=== PATIENT | female | born 1960 | race Caucasian/White ===

== ENCOUNTER 2017-08-25 10:03 | Emergency (ER) | payer SELFPAY ==
[~2017-08-25] VITALS: Ht 175.3 cm; Wt 62.6 kg
[~2017-08-25 10:03] MED LIST: LOSA25TA8; SIMV5TAB38; TRIA25CA
[2017-08-25 13:49] VITALS: BP 112/83
== END 2017-08-25 14:51 | disposition home or self-care (01) ==
LOC: ER 10:03
DX: R21 Rash and other nonspecific skin eruption (principal); K21.9 Gastro-esophageal reflux disease without esophagitis; I10 Essential (primary) hypertension; E78.5 Hyperlipidemia, unspecified; F17.210 Nicotine dependence, cigarettes, uncomplicated

== ENCOUNTER 2019-11-01 15:27 | Inpatient (IN) | payer MEDICAID ==
[~2019-11-01] VITALS: Ht 165.1 cm; Wt 67.7 kg
[2019-11-01 16:20] LABS: Basophils # (auto) 0.1 10 ^3/uL (0-0.2); Basophils % (auto) 0.9 % (0.0-2.0); Eosinophils # (auto) 0.1 10 ^3/uL (0-0.8); Eosinophils % (auto) 0.5 % (0.0-7.0); Hematocrit 16.6 % (36.0-46.0); Lymphocytes # (auto) 1.9 10 ^3/uL (0.4-5.4); Lymphocytes % (auto) 15.9 % (10.0-50.0); Mean Corpuscular Hemoglobin 16.4 pg (28.0-32.0); Mean Corpuscular Hgb Conc. 27.4 g/dL (32.0-36.0); Mean Corpuscular Volume 59.9 fL (80.0-100.0); Monocytes % (auto) 8.6 % (0.0-12.0); Neutrophils % (auto) 74.1 % (37.0-80.0); Nucleated Red Blood Cells % 7.5 %; Platelet Count (auto) 585 10^3/uL (140-450); Red Blood Cells 2.78 10^6/uL (4.0-5.20); Red Cell Distribution Width 23.6 % (11.8-14.3); White Blood Cell 12.2 10^3/uL (4.4-10.8)
[2019-11-01 16:22] LABS: Hemoglobin 4.6 g/dL (12.2-16.2)
[2019-11-01] MEDS ORDERED: SODIUM CHLORIDE 0.9% 1,000 ML IV ONE (16:32)
[2019-11-01 16:44] LABS: Alanine Aminotransferase 18 U/L (13-56); Albumin 3.4 g/dL (3.4-5.0); Anion Gap 10 (5-15); Aspartate Aminotransferase 9 U/L (15-37); BUN/Creatinine Ratio 14.5; Blood Urea Nitrogen 10 mg/dL (7-18); Calcium 8.5 mg/dL (8.5-10.1); Carbon Dioxide 21 mmol/L (21-32); Chloride 107 mmol/L (98-107); GFR African American 112 mL/min; GFR Non-African American 93 mL/min; Glucose 91 mg/dL (74-106); Potassium 3.6 mmol/L (3.5-5.1); Sodium 138 mmol/L (136-145)
[2019-11-01 16:49] LABS: Alkaline Phosphatase 72 U/L (45-117); Bilirubin, Total 0.4 mg/dL (0.2-1.0); Total Protein 7.4 g/dL (6.4-8.2)
[2019-11-01 17:56] LABS: INR 0.97 (0.9-1.15)
[2019-11-01 18:02] LABS: Partial Thromboplastin Time > 139.0 sec (23.64-32.05)
[2019-11-01] MEDS ORDERED: IOHEXOL 300 MG/ML 100ML BOTTLE IJ ONE (18:05)
[2019-11-01 18:51] VITALS: BP 132/81
[2019-11-01 19:06] VITALS: BP 131/82
[2019-11-01 20:10] VITALS: BP 139/83
[2019-11-01] MEDS ORDERED: cefTRIAXone 1GM/50ML D5W 50 ML IV ONE (20:30)
[2019-11-01] MEDS ORDERED: metroNIDAZOLE 500MG/100ML 100 ML IV ONE (20:30)
[2019-11-01 20:59] VITALS: BP 138/79
[2019-11-01] MEDS ORDERED: ONDANSETRON HCL 4 MG/2 ML VIAL IV PRN (21:00)
[2019-11-01] MEDS ORDERED: TEMAZEPAM 15 MG CAP PO PRN (21:00)
[2019-11-01 21:16] LABS: Urine WBC None Seen /hpf (0 - 5)
[2019-11-01 21:19] VITALS: BP 138/79
[2019-11-01 21:28] LABS: Urine Bacteria NONE SEEN /hpf (None Seen); Urine Blood Negative /uL (Negative); Urine Specific Gravity 1.045 (1.001-1.035)
[2019-11-01 21:34] VITALS: BP 137/81
[2019-11-01] MEDS ORDERED: NITROGLYCERIN 0.4 MG SL TAB SL PRN (21:45)
[2019-11-01] MEDS ORDERED: MORPHINE SULF INJ 2 MG/ML SYRINGE 1ML IV PRN (21:45)
[2019-11-01] MEDS: ATORVASTATIN 20 MG TAB PO SCH (22:19)
[2019-11-01] MEDS: FAMOTIDINE 20 MG TAB PO SCH (22:19)
[2019-11-02] VITALS (9 sets, daily range): BP systolic 109–137; BP diastolic 69–85
[2019-11-02 03:29] LABS: % Iron Saturation 1.8 % (15-50)
[2019-11-02 05:30] LABS: Basophils # (auto) 0.1 10 ^3/uL (0-0.2); Basophils % (auto) 1.2 % (0.0-2.0); Eosinophils # (auto) 0.2 10 ^3/uL (0-0.8); Hemoglobin 7.1 g/dL (12.2-16.2); White Blood Cell 11.3 10^3/uL (4.4-10.8)
[2019-11-02 05:34] LABS: Eosinophils % (auto) 1.6 % (0.0-7.0); Hematocrit 23.4 % (36.0-46.0); Lymphocytes # (auto) 1.8 10 ^3/uL (0.4-5.4); Lymphocytes % (auto) 16.4 % (10.0-50.0); Mean Corpuscular Hemoglobin 20.8 pg (28.0-32.0); Mean Corpuscular Hgb Conc. 30.5 g/dL (32.0-36.0); Mean Corpuscular Volume 68.2 fL (80.0-100.0); Monocytes # (auto) 1.4 10 ^3/uL (0-1.3); Monocytes % (auto) 12.2 % (0.0-12.0); Neutrophils # (auto) 7.8 10 ^3/uL (1.6-8.6); Neutrophils % (auto) 68.6 % (37.0-80.0); Platelet Count (auto) 466 10^3/uL (140-450); Red Blood Cells 3.42 10^6/uL (4.0-5.20)
[2019-11-02 05:42] LABS: Red Cell Distribution Width 30.6 % (11.8-14.3)
[2019-11-02 05:50] LABS: BUN/Creatinine Ratio 14.8; Calcium 8.4 mg/dL (8.5-10.1); Potassium 3.9 mmol/L (3.5-5.1)
[2019-11-02] MEDS: ACETAMINOPHEN 325 MG TAB PO PRN ×2 (06:47→14:25)
[2019-11-02] MEDS: FAMOTIDINE 20 MG TAB PO SCH ×2 (09:40→21:53)
[2019-11-02] MEDS: LOSARTAN POTASSIUM 25 MG TAB PO SCH (09:40)
[2019-11-02] MEDS ORDERED: SODIUM FERR GLUC 62.5MG/5ML 125 MG in SODIUM CHL 0.9% 100 ML IV ONE (15:30)
[2019-11-02] MEDS ORDERED: BISACODYL 5 MG EC TAB PO ONE (15:45)
[2019-11-02 18:25] LABS: INR 0.97 (0.9-1.15); Partial Thromboplastin Time 20.8 sec (23.64-32.05)
[2019-11-02] MEDS: ATORVASTATIN 20 MG TAB PO SCH (21:54)
[2019-11-02 22:15] LABS: Urine Bacteria NONE SEEN /hpf (None Seen); Urine Blood Negative /uL (Negative); Urine Specific Gravity 1.016 (1.001-1.035); Urine WBC 1 /hpf (0 - 5)
[2019-11-03 05:22] VITALS: BP 133/79
[2019-11-03 05:57] LABS: Hemoglobin 7.4 g/dL (12.2-16.2); Mean Corpuscular Hemoglobin 20.5 pg (28.0-32.0); Mean Corpuscular Hgb Conc. 29.7 g/dL (32.0-36.0)
[2019-11-03 05:59] LABS: Platelet Count (auto) 462 10^3/uL (140-450); Red Blood Cells 3.63 10^6/uL (4.0-5.20); Red Cell Distribution Width 30.3 % (11.8-14.3); White Blood Cell 13.5 10^3/uL (4.4-10.8)
[2019-11-03 06:00] LABS: Band Neutrophils % (manual) 0; Basophils % (manual) 0 (0.0-2.0); Blast Cells 0; Metamyelocytes % 0; Myelocytes % 0; Promyelocytes % 0; Reactive Lymphocytes 0
[2019-11-03 06:26] LABS: Cholesterol 136 mg/dL (< 200); HDL Cholesterol 60 mg/dL (40-59); LDL Cholesterol 70 mg/dL (< 100); Triglycerides 59 mg/dL (< 150)
[2019-11-03 06:29] LABS: % Iron Saturation 9.1 % (15-50)
[2019-11-03 07:13] LABS: Eosinophils % (manual) 3 (0-7); Lymphocytes % (manual) 8 (10.0-50.0); Monocytes % (manual) 5 (0-12)
[2019-11-03 07:27] LABS: INR 1.01 (0.9-1.15); Partial Thromboplastin Time 21.6 sec (23.64-32.05)
[2019-11-03 07:51] LABS: Folate (Folic Acid) 6.07 ng/mL (5.38-24)
[2019-11-03 08:00] VITALS: BP 129/83
[2019-11-03 09:00] VITALS: BP 129/83
[2019-11-03] MEDS: LOSARTAN POTASSIUM 25 MG TAB PO SCH (09:47)
[2019-11-03] MEDS: FAMOTIDINE 20 MG TAB PO SCH (09:47)
[2019-11-03] MEDS ORDERED: SODIUM FERR GLUC 62.5MG/5ML 125 MG in SODIUM CHL 0.9% 100 ML IV SCH (12:00)
[2019-11-03 13:00] VITALS: BP 118/77
[2019-11-03] MEDS: ACETAMINOPHEN 325 MG TAB PO PRN (15:01)
[2019-11-03] MEDS ORDERED: FER325T PO (15:23)
[2019-11-03] MEDS ORDERED: PANT40TA2 PO (15:24)
[2019-11-03 17:00] VITALS: BP 133/93
[2019-11-03 18:45] VITALS: BP 133/93
[2019-11-06 07:02] LABS: Hepatitis B Surface Antibody Negative
[2019-11-06 10:41] LABS: Hepatitis B Surface Antigen Negative (Negative)
[2019-11-06 10:47] LABS: Hepatitis C Antibody Negative (Negative)
== END 2019-11-03 21:00 | disposition home or self-care (01) | DRG 663 ==
LOC: ER 15:27 → TELE 15:28 → TELE-WESTW 22:45
PROVIDERS: ADMIT Nurse Practitioner; ATTEND Internal Medicine
PROC: 30233N1 Transfusion of Nonautologous Red Blood Cells into Peripheral Vein, Percutaneous Approach (ICD-10-PCS; principal; 2019-11-01)
DX: D50.9 Iron deficiency anemia, unspecified (principal); D65 Disseminated intravascular coagulation [defibrination syndrome]; D47.3 Essential (hemorrhagic) thrombocythemia; K44.9 Diaphragmatic hernia without obstruction or gangrene; I10 Essential (primary) hypertension; E78.5 Hyperlipidemia, unspecified; Z86.2 Personal history of diseases of the blood and blood-forming organs and certain disorders involving the immune mechanism; Z90.81 Acquired absence of spleen; Z87.891 Personal history of nicotine dependence
CPT/HCPCS: 36415; 71045; 74177; 80048; 80053; 80061; 81001; 82270; 82607; 82746; 83540; 83550; 83735; 84443; 84484; 85007; 85025; 85027; 85610; 85730; 86706; 86803; 86850; 86900; 86901; 86920; 87086; 87340; 93005; 96361; 96365; 96368; G0378; J0696; J3490

== ENCOUNTER 2019-11-04 18:41 | Inpatient (IN) | payer MEDICAID ==
[~2019-11-04] VITALS: Ht 165.1 cm; Wt 69.1 kg
[2019-11-04 10:30] VITALS: BP 157/88
[~2019-11-04 18:41] MED LIST changes: +FER325T PO; +PANT40TA2 PO
[2019-11-04] MEDS ORDERED: SODIUM CHLORIDE 0.9% 1,000 ML IV ONE (18:48)
[2019-11-04] MEDS ORDERED: cefTRIAXone 1GM/50ML D5W 50 ML IV ONE (19:00)
[2019-11-04 20:17] LABS: Hemoglobin 7.8 g/dL (12.2-16.2); Mean Corpuscular Volume 71.7 fL (80.0-100.0)
[2019-11-04 20:18] LABS: Hematocrit 25.7 % (36.0-46.0); Mean Corpuscular Hemoglobin 21.8 pg (28.0-32.0); Mean Corpuscular Hgb Conc. 30.4 g/dL (32.0-36.0); Platelet Count (auto) 478 10^3/uL (140-450); Red Blood Cells 3.58 10^6/uL (4.0-5.20); White Blood Cell 14.1 10^3/uL (4.4-10.8)
[2019-11-04 20:19] LABS: Red Cell Distribution Width 32.2 % (11.8-14.3)
[2019-11-04 20:21] LABS: Basophils % (manual) 0 (0.0-2.0); Blast Cells 0; Eosinophils % (manual) 0 (0-7); Metamyelocytes % 0; Myelocytes % 0; Promyelocytes % 0; Reactive Lymphocytes 0
[2019-11-04 20:28] LABS: Albumin 3.5 g/dL (3.4-5.0); Calcium 9.2 mg/dL (8.5-10.1); Potassium 3.6 mmol/L (3.5-5.1)
[2019-11-04 20:32] LABS: BUN/Creatinine Ratio 11.4; Bilirubin, Total 0.4 mg/dL (0.2-1.0); Total Protein 7.3 g/dL (6.4-8.2)
[2019-11-04 21:08] LABS: Band Neutrophils % (manual) 0; Lymphocytes % (manual) 13 (10.0-50.0); Monocytes % (manual) 10 (0-12)
[2019-11-04] MEDS ORDERED: ONDANSETRON HCL 4 MG/2 ML VIAL IV PRN (21:30)
[2019-11-04] MEDS ORDERED: DOCUSATE SOD 100 MG CAP PO PRN (21:30)
[2019-11-04] MEDS ORDERED: ACETAMINOPHEN 325 MG TAB PO PRN (21:30)
[2019-11-04] MEDS: SODIUM CHLORIDE 0.9% 1,000 ML IV SCH (21:36)
[2019-11-04] MEDS: CLINDAMYCIN 600MG IV 50 ML IV SCH (21:50)
[2019-11-04] MEDS: FERROUS SULFATE 325 MG TAB PO SCH (21:51)
[2019-11-04] MEDS: RIVAROXABAN 15 MG TAB PO SCH (21:51)
--- NOTE | 2019-11-04 22:46 | NUR ---
MS admit from ER BRIANNA FOSTER Y admitted to tele/MS . Patient oriented to LIN WERNER, primary RN, unit, room, bed, and unit policies regarding patient care and visiting hours. Patient weighed by bedscale and encouraged to call if they need something. All questions and concerns addressed, patient verbalized understanding. Call fair with in reach. Bed in low position. Right arm slightly reddened and swollen. MRSA swab done, recent hospital discharge.
[2019-11-04] MEDS: HYDROcodone-ACET 5/325MG TAB PO PRN (23:00)
[2019-11-05] MEDS: CLINDAMYCIN 600MG IV 50 ML IV SCH ×3 (05:08→21:07)
[2019-11-05] MEDS: SODIUM CHLORIDE 0.9% 1,000 ML IV SCH ×2 (05:11→17:42)
[2019-11-05 05:30] VITALS: BP 136/88
[2019-11-05] MEDS: HYDROcodone-ACET 5/325MG TAB PO PRN ×4 (05:35→21:08)
[2019-11-05 09:00] VITALS: BP 115/80
--- NOTE | 2019-11-05 09:15 | NUR ---
PAIN PATIENT C/O LEFT ARM PAIN, WHICH IS NON RADIATING. RATING IT A 6 ON A 0-10 SCALE. ARM WARM TO TOUCH AND TENDER TO TOUCH. PATIENT REQUEST PAIN MEDICATION. WILL ADMINISTER PRN PER ORDER. WILL REASSESS.
[2019-11-05] MEDS: PANTOPRAZOLE 40 MG TAB PO SCH (09:19)
[2019-11-05] MEDS: FERROUS SULFATE 325 MG TAB PO SCH ×2 (09:20→21:07)
[2019-11-05] MEDS: HCTZ 25 MG TAB PO SCH (09:20)
[2019-11-05] MEDS: ATORVASTATIN 20 MG TAB PO SCH (09:21)
[2019-11-05] MEDS: LOSARTAN POTASSIUM 25 MG TAB PO SCH (09:22)
[2019-11-05] MEDS: RIVAROXABAN 15 MG TAB PO SCH (09:22)
[2019-11-05 09:30] LABS: Basophils # (auto) 0.1 10 ^3/uL (0-0.2); Eosinophils # (auto) 0.3 10 ^3/uL (0-0.8); Neutrophils # (auto) 7.2 10 ^3/uL (1.6-8.6); Platelet Count (auto) 505 10^3/uL (140-450); White Blood Cell 12.5 10^3/uL (4.4-10.8)
[2019-11-05 09:32] LABS: Basophils % (auto) 0.9 % (0.0-2.0); Eosinophils % (auto) 2.4 % (0.0-7.0); Hematocrit 26.3 % (36.0-46.0); Hemoglobin 7.8 g/dL (12.2-16.2); Lymphocytes # (auto) 3.9 10 ^3/uL (0.4-5.4); Lymphocytes % (auto) 31.5 % (10.0-50.0); Mean Corpuscular Hemoglobin 21.2 pg (28.0-32.0); Mean Corpuscular Hgb Conc. 29.7 g/dL (32.0-36.0); Mean Corpuscular Volume 71.6 fL (80.0-100.0); Monocytes % (auto) 7.8 % (0.0-12.0); Neutrophils % (auto) 57.4 % (37.0-80.0); Nucleated Red Blood Cells % 1.1 %; Red Blood Cells 3.67 10^6/uL (4.0-5.20)
[2019-11-05 09:52] LABS: BUN/Creatinine Ratio 12.7; Calcium 8.6 mg/dL (8.5-10.1); Potassium 4.1 mmol/L (3.5-5.1)
--- NOTE | 2019-11-05 10:20 | NUR ---
PAIN REASSESSMENT. PATIENT RESTING IN BED COMFORTABLY. NO S/S OF PAIN OR DISTRESS NOTED AT THIS TIME. PATIENT STATES PAIN IS TOLERABLE AT THIS TIME AND RATES IT A 3/10. WILL CONTINUE MONITORING.
--- NOTE | 2019-11-05 12:00 | NUR ---
URINALYSIS COLLECTED AND SENT TO LAB
[2019-11-05 12:37] VITALS: BP 121/78
[2019-11-05 13:15] LABS: Urine Bacteria NONE SEEN /hpf (None Seen); Urine Blood Negative /uL (Negative); Urine Mucus FEW (None Seen); Urine Specific Gravity 1.017 (1.001-1.035); Urine WBC 1 /hpf (0 - 5)
[2019-11-05 22:00] VITALS: BP 121/80
[2019-11-06] MEDS: HYDROcodone-ACET 5/325MG TAB PO PRN ×4 (01:15→13:24)
[2019-11-06] MEDS: SODIUM CHLORIDE 0.9% 1,000 ML IV SCH ×2 (05:04→13:24)
[2019-11-06] MEDS: CLINDAMYCIN 600MG IV 50 ML IV SCH ×2 (05:15→13:03)
[2019-11-06 05:51] VITALS: BP 149/89
[2019-11-06 08:00] VITALS: BP 149/90
--- NOTE | 2019-11-06 08:00 | NUR ---
Opening Note Assumed patient care from CONCHITA RN.
[2019-11-06 09:00] VITALS: BP 149/90
[2019-11-06] MEDS: FERROUS SULFATE 325 MG TAB PO SCH (09:18)
[2019-11-06] MEDS: PANTOPRAZOLE 40 MG TAB PO SCH (09:19)
[2019-11-06] MEDS: HCTZ 25 MG TAB PO SCH (09:19)
[2019-11-06] MEDS: LOSARTAN POTASSIUM 25 MG TAB PO SCH (09:20)
[2019-11-06] MEDS ORDERED: ENOXAPARIN SOD 40 MG/0.4 ML SYRINGE SC SCH (10:00)
[2019-11-06] MEDS: ATORVASTATIN 20 MG TAB PO SCH (11:32)
[2019-11-06 12:20] VITALS: BP 121/77
--- NOTE | 2019-11-06 15:10 | NUR ---
MD at bedside MD at bedside discussing plan of care with patient. Will carry out new orders.
[2019-11-06 16:04] VITALS: BP 121/77
[2019-11-06 17:04] VITALS: BP 107/78
--- NOTE | 2019-11-06 17:18 | NUR ---
Discharge Discharge instructions given as ordered. Encourage to follow up with PMD as instructed. All questions and concerns addressed. Patient verbalized understanding. IV removed with catheter intact, pressure dressing applied. Patient ambulated to vehicle with all personal belongings, accompanied by family member. No distress noted at time of departure.
== END 2019-11-06 17:18 | disposition home or self-care (01) | DRG 197 ==
LOC: ER 18:42 → OVERFLOW 18:43 → WEST WING 22:23
PROVIDERS: ADMIT Hospitalist; ATTEND Internal Medicine
DX: I82.90 Acute embolism and thrombosis of unspecified vein (principal); T82.848A Pain due to vascular prosthetic devices, implants and grafts, initial encounter; I11.9 Hypertensive heart disease without heart failure; D50.9 Iron deficiency anemia, unspecified; D64.9 Anemia, unspecified; E11.9 Type 2 diabetes mellitus without complications; E03.9 Hypothyroidism, unspecified; L03.113 Cellulitis of right upper limb; I82.611 Acute embolism and thrombosis of superficial veins of right upper extremity; I80.8 Phlebitis and thrombophlebitis of other sites; E07.9 Disorder of thyroid, unspecified; E78.5 Hyperlipidemia, unspecified; K21.9 Gastro-esophageal reflux disease without esophagitis; Y84.8 Other medical procedures as the cause of abnormal reaction of the patient, or of later complication, without mention of misadventure at the time of the procedure; Z79.899 Other long term (current) drug therapy; Z87.891 Personal history of nicotine dependence; Z82.49 Family history of ischemic heart disease and other diseases of the circulatory system; Z80.9 Family history of malignant neoplasm, unspecified
CPT/HCPCS: 36415; 71045; 80048; 80053; 81001; 85007; 85025; 85027; 87081; 93971; 96365; G0378; J0696; J3490

== ENCOUNTER 2020-09-14 08:07 | Emergency (ER) | payer MEDICAID ==
[~2020-09-14] VITALS: Ht 165.1 cm; Wt 68.0 kg
[~2020-09-14 08:07] MED LIST changes: +LOSA25TA2; -LOSA25TA8; -TRIA25CA
[2020-09-14] MEDS ORDERED: ASPirin 81 mg TAB PO ONE (09:00)
[2020-09-14 09:47] LABS: Albumin 3.4 g/dL (3.4-5.0); Anion Gap 4 (5-15); Blood Urea Nitrogen 15 mg/dL (7-18); Calcium 8.8 mg/dL (8.5-10.1); Carbon Dioxide 28 mmol/L (21-32); Chloride 106 mmol/L (98-107); Glucose 111 mg/dL (74-106); Potassium 4.6 mmol/L (3.5-5.1); Sodium 138 mmol/L (136-145)
[2020-09-14 09:52] LABS: Alanine Aminotransferase 31 U/L (13-56); Alkaline Phosphatase 142 U/L (45-117); Aspartate Aminotransferase 17 U/L (15-37); BUN/Creatinine Ratio 22.1; Bilirubin, Total 0.4 mg/dL (0.2-1.0); GFR African American 114 mL/min; GFR Non-African American 94 mL/min
[2020-09-14 10:01] LABS: Basophils # (auto) 0.1 10 ^3/uL (0-0.2); Basophils % (auto) 1.1 % (0.0-2.0); Eosinophils # (auto) 0.5 10 ^3/uL (0-0.8); Eosinophils % (auto) 5.7 % (0.0-7.0); Hematocrit 48.2 % (36.0-46.0); Hemoglobin 16.3 g/dL (12.2-16.2); Lymphocytes % (auto) 21.9 % (10.0-50.0); Mean Corpuscular Hemoglobin 32.3 pg (28.0-32.0); Mean Corpuscular Hgb Conc. 33.8 g/dL (32.0-36.0); Mean Corpuscular Volume 95.5 fL (80.0-100.0); Monocytes # (auto) 0.8 10 ^3/uL (0-1.3); Neutrophils # (auto) 5.7 10 ^3/uL (1.6-8.6); Neutrophils % (auto) 62.3 % (37.0-80.0); Nucleated Red Blood Cells % 0.1 %; Red Blood Cells 5.05 10^6/uL (4.0-5.20); Red Cell Distribution Width 14.8 % (11.8-14.3); White Blood Cell 9.1 10^3/uL (4.4-10.8)
[2020-09-14] MEDS ORDERED: ASPirin 81 mg TAB ONE (10:32)
[2020-09-14 10:44] VITALS: BP 153/96
== END 2020-09-14 10:46 | disposition home or self-care (01) ==
LOC: ER 08:07
DX: R07.89 Other chest pain (principal); I10 Essential (primary) hypertension; K21.9 Gastro-esophageal reflux disease without esophagitis; E78.5 Hyperlipidemia, unspecified; Z79.899 Other long term (current) drug therapy; Z87.891 Personal history of nicotine dependence
CPT/HCPCS: 36415; 71045; 80053; 84484; 85025; 93005

== ENCOUNTER 2021-03-21 05:54 | Emergency (ER) | payer MEDICAID ==
[~2021-03-21] VITALS: Ht 165.1 cm; Wt 72.6 kg
[2021-03-21 08:51] LABS: Basophils # (auto) 0 10 ^3/uL (0-0.2); Basophils % (auto) 0.4 % (0.0-2.0); Eosinophils # (auto) 0.1 10 ^3/uL (0-0.8); Hematocrit 45.9 % (36.0-46.0); Hemoglobin 14.4 g/dL (12.2-16.2); Lymphocytes # (auto) 2.1 10 ^3/uL (0.4-5.4); Lymphocytes % (auto) 15.2 % (10.0-50.0); Mean Corpuscular Hemoglobin 27.7 pg (28.0-32.0); Mean Corpuscular Hgb Conc. 31.4 g/dL (32.0-36.0); Mean Corpuscular Volume 88.3 fL (80.0-100.0); Neutrophils # (auto) 10.6 10 ^3/uL (1.6-8.6); Neutrophils % (auto) 76.4 % (37.0-80.0); Nucleated Red Blood Cells % 0.1 %; Red Blood Cells 5.19 10^6/uL (4.0-5.20); Red Cell Distribution Width 16.5 % (11.8-14.3); White Blood Cell 13.8 10^3/uL (4.4-10.8)
[2021-03-21 09:00] LABS: Urine Bacteria FEW /hpf (None Seen); Urine Blood Negative /uL (Negative); Urine Mucus FEW (None Seen); Urine Specific Gravity 1.024 (1.001-1.035); Urine WBC 7 /hpf (0 - 5)
[2021-03-21 09:07] LABS: INR 1.04 (0.9-1.15); Partial Thromboplastin Time 24.3 sec (23.0-31.2)
[2021-03-21 10:10] LABS: Albumin 3.6 g/dL (3.4-5.0); Anion Gap 9 (5-15); Blood Urea Nitrogen 22 mg/dL (7-18); Calcium 8.8 mg/dL (8.5-10.1); Carbon Dioxide 20 mmol/L (21-32); Chloride 108 mmol/L (98-107); GFR African American 162 mL/min; GFR Non-African American 134 mL/min; Glucose 106 mg/dL (74-106); Potassium 4.1 mmol/L (3.5-5.1); Sodium 137 mmol/L (136-145)
[2021-03-21 10:20] LABS: Alanine Aminotransferase 41 U/L (13-56); Alkaline Phosphatase 124 U/L (45-117); Aspartate Aminotransferase 22 U/L (15-37); Bilirubin, Total 0.4 mg/dL (0.2-1.0)
[2021-03-21] MEDS ORDERED: IOHEXOL 300 MG/ML 100ML BOTTLE IJ ONE (12:42)
[2021-03-21 15:53] VITALS: BP 120/79
== END 2021-03-21 15:58 | disposition home or self-care (01) ==
LOC: ER 05:54
DX: R10.84 Generalized abdominal pain (principal); K92.0 Hematemesis; K92.1 Melena; K21.9 Gastro-esophageal reflux disease without esophagitis; E78.5 Hyperlipidemia, unspecified; I10 Essential (primary) hypertension; Z86.2 Personal history of diseases of the blood and blood-forming organs and certain disorders involving the immune mechanism; Z87.891 Personal history of nicotine dependence; Z79.899 Other long term (current) drug therapy
CPT/HCPCS: 36415; 74177; 80053; 81001; 85025; 85610; 85730; 99285; Q9967

== ENCOUNTER 2022-02-23 18:24 | Emergency (ER) | payer MEDICAID ==
[~2022-02-23] VITALS: Ht 165.1 cm; Wt 72.6 kg
[2022-02-23 18:50] VITALS: BP 151/99
[2022-02-23] MEDS ORDERED: HYDR-4902 PO (20:28)
[2022-02-23] MEDS: DexAMETHasone SOD PHOS 10MG/1ML VIAL INJ IV ONE (20:39)
[2022-02-23] MEDS: KETOROLAC TROMETH 60MG/2ML VIAL IM ONE (20:43)
== END 2022-02-23 20:53 | disposition home or self-care (01) ==
LOC: EDBD 18:24 → ER 18:24
DX: M54.50 Low back pain, unspecified (principal); M79.18 Myalgia, other site; K21.9 Gastro-esophageal reflux disease without esophagitis; E78.5 Hyperlipidemia, unspecified; I10 Essential (primary) hypertension; Z87.891 Personal history of nicotine dependence
CPT/HCPCS: 93005; 96372; 96374; 99283; J1100; J1885

== ENCOUNTER 2023-09-01 12:33 | Emergency (ER) | payer MEDICAID ==
[~2023-09-01] VITALS: Ht 165.1 cm; Wt 79.5 kg
[~2023-09-01 12:33] MED LIST changes: +HYDR-4902 PO; -LOSA25TA2; +LOSA25TA5
[2023-09-01 14:07] LABS: Basophils # (auto) 0.1 10 ^3/uL (0-0.2); Mean Corpuscular Hemoglobin 28.8 pg (28.0-32.0); Nucleated Red Blood Cells % 0.1 %; White Blood Cell 10.5 10^3/uL (4.4-10.8)
[2023-09-01 14:08] LABS: Basophils % (auto) 0.8 % (0.0-2.0); Eosinophils # (auto) 0.1 10 ^3/uL (0-0.8); Eosinophils % (auto) 1.4 % (0.0-7.0); Hematocrit 55.4 % (36.0-46.0); Lymphocytes # (auto) 1.8 10 ^3/uL (0.4-5.4); Lymphocytes % (auto) 17.2 % (10.0-50.0); Mean Corpuscular Hgb Conc. 32.5 g/dL (32.0-36.0); Mean Corpuscular Volume 88.5 fL (80.0-100.0); Monocytes % (auto) 9.6 % (0.0-12.0); Neutrophils # (auto) 7.4 10 ^3/uL (1.6-8.6); Red Blood Cells 6.26 10^6/uL (4.0-5.20); Red Cell Distribution Width 17.2 % (11.8-14.3)
[2023-09-01 14:18] LABS: Alanine Aminotransferase 21 U/L (7-40); Albumin 4.4 g/dL (3.2-4.8); Alkaline Phosphatase 198 U/L (46-116); Anion Gap 8 (5-15); Aspartate Aminotransferase 27 U/L (13-40); Calcium 9.4 mg/dL (8.7-10.4); Carbon Dioxide 25 mmol/L (20-30); Chloride 101 mmol/L (98-107); Glucose 125 mg/dL (74-106); Potassium 5.1 mmol/L (3.5-5.1); Sodium 134 mmol/L (136-145)
[2023-09-01 14:19] LABS: Bilirubin, Total 0.7 mg/dL (0.2-1.0); Total Protein 8.2 g/dL (5.7-8.2)
[2023-09-01 14:22] LABS: Blood Urea Nitrogen < 5 mg/dL (9-23)
[2023-09-01] MEDS ORDERED: SODIUM CHLORIDE 0.9% 1,000 ML IVB ONE (15:30)
[2023-09-01 17:50] VITALS: BP 149/94; PULSE 70; RESP 16; TEMP 97.3; O2SAT 95
== END 2023-09-01 17:51 | disposition home or self-care (01) ==
LOC: ER 12:33
DX: E86.0 Dehydration (principal); R71.8 Other abnormality of red blood cells; I10 Essential (primary) hypertension; E78.5 Hyperlipidemia, unspecified; E03.9 Hypothyroidism, unspecified; K21.9 Gastro-esophageal reflux disease without esophagitis; Z90.81 Acquired absence of spleen; Z86.2 Personal history of diseases of the blood and blood-forming organs and certain disorders involving the immune mechanism; Z87.891 Personal history of nicotine dependence; Z79.899 Other long term (current) drug therapy
CPT/HCPCS: 36415; 80053; 83735; 85025; 96360; 96361; 99283; J7030

== ENCOUNTER 2025-08-27 15:29 | Emergency (ER) | payer MEDICAID ==
[~2025-08-27] VITALS: Ht 165.1 cm; Wt 79.1 kg
--- NOTE | 2025-08-27 16:00 | ED.PDOC ---
SOB-HPI HPI Comments 64 year old female wiht PMHx of HTN, thyroid disease, HLD, to the ED with a chief complaint of shortness of breath onset 1 day. Patient went to urgent care, was advised to come to ED due to symptoms. Patient initially went to urgent care for flu like symptoms, including nasal congestion, fever, chills, headache, cough, staff noticed patient was experiencing increased work of breathing, she was hypoxic. Upon ED arrival O2 sat was 88% on RA. Denies dizziness, chest pain, nausea, vomiting, diarrhea, numbness/tingling. No other symptoms or modifying factors present at this time. Chief Complaint: Shortness of Breath Time Seen by MD: 15:50 Primary Care Provider: Pamela Hairston notes: Medications, Allergies Information Source: Patient, Spouse Mode of Arrival: Ambulatory Severity: Moderate Timing: Days Duration: Since onset Context: At Rest PE Risk Factors: None History of: None Prehospital treatment: Oxygen Modifying Factors: Nothing Associated Signs and Symptoms: Nasal Congestion Past Medical History PAST MEDICAL HISTORY: Anemia, GERD, High Lipids, HTN, Thyroid Surgical History: , Tubal Ligation VISION SPECIALIST History: No Pertinent VISION SPECIALIST History Family History Family History: Reviewed,noncontributory to illness, No family hx of Cancer, No family hx of DM Social History Smoker: Non-Smoker, Quit Less Than 1 Year Alcohol: Occasionally Drugs: Denies Drug Use Lives In: Home Constitutional: reports: fever; denies: chills, diaphoresis, fatigue, malaise, sweats, weakness, others EENTM: reports: nose congestion; denies: blurred vision, double vision, ear bleeding, ear discharge, ear drainage, ear pain, ear ringing, eye pain, eye redness, hearing loss, mouth pain, mouth swelling, nasal discharge, nose bleeding, nose pain, photophobia, tearing, throat pain, throat swelling, voice changes, others Respiratory: reports: shortness of breath; denies: cough, hemoptysis, orthopnea, SOB at rest, SOB with excertion, stridor, wheezing, others Cardiovascular: denies: chest pain, dizzy spells, diaphoresis, Dyspnea on exertion, edema, irregular heart beat, left arm pain, lightheadedness, palpitations, PND, syncope, others Gastrointestinal: denies: abdomen distended, abdominal pain, blood streaked bowels, constipated, diarrhea, dysphagia, difficulty swallowing, hematemesis, melena, nausea, poor appetite, poor fluid intake, rectal bleeding, rectal pain, vomiting, others Genitourinary: denies: abnormal vagina bleeding, burning, dyspareunia, dysuria, flank pain, frequency, hematuria, incontinence, pain, , vagina discharge, urgency, others Neurological: reports: headache; denies: dizziness, fainting, left sided numbness, left sided weakness, numbness, paresthesia, pre-existing deficit, right sided numbness, right sided weakness, seizure, speech problems, tingling, tremors, weakness, others Musculoskeletal: denies: back pain, gout, joint pain, joint swelling, muscle pain, muscle stiffness, neck pain, others Integumetry: denies: bruises, change in color, change in hair/nails, dryness, laceration, lesions, lumps, rash, wounds, others Allergic/Immunocompromised: denies: Difficulty Healing, Frequent Infections, Hives, Itching, others Hematologic/Lymphatic: denies: anemia, blood clots, easy bleeding, easy bruising, swollen glands, others Endocrine: denies: excessive hunger, excessive sweating, excessive thirst, excessive urination, flushing, intolerance to cold, intolerance to heat, unexplained weight gain, unexplained weight loss, others Psychiatric: denies: anxiety, bipolar disorder, depression, hopeless, panic disorder, schizophrenia, sleepless, suicidal, others All Other Systems: Reviewed and Negative Physical Exam General Appearance: Moderate Distress, Normal HEENT: Normal ENT Inspection, Pharynx Normal, TMs Normal Neck: Full Range of Motion, Non-Tender, Normal, Normal Inspection Respiratory: Accessory Muscle Use, Chest Non-Tender, No Accessory Muscle Use, Respiratory Distress, Wheezing Cardiovascular: No Edema, No JVD, No Murmur, No Gallop, Normal Peripheral Pulses, Regular Rate/Rhythm Breast Exam: Deferred Gastrointestinal: No Organomegaly, Non Tender, No Pulsatile Mass, Normal Bowel Sounds, Soft Genitalia: Deferred Pelvic: Deferred Rectal: Deferred Extremities: No calf tenderness, Normal capillary refill, Normal inspection, Normal range of motion, Non-tender, No pedal edema Musculoskeletal : Apperance: Normal Neurologic: Alert, television production clerk II-XII nml as Tested, No Motor Deficits, Normal Affect, Normal Mood, No Sensory Deficits Cerebellar Function: NOT DONE Reflexes: NOT DONE Skin: Dry, Normal Color, Warm Peripheral Pulses: 3+ Radial (R), 3+ Radial (L) Lymphatic: No Adenopathy Was a procedure done? Was a procedure done?: No Differential Dx Differential Diagnosis: Anxiety, Asthma, Bronchitis X-Ray, Labs, Meds, VS Vital Signs Date Time Temp Pulse Resp B/P (MAP) Pulse Ox O2 Delivery O2 Flow Rate FiO2 08/27/25 15:33 100.7 96 20 143/103 88 100.7 Lab Test 08/27/25 16:19 Range/Units White Blood Count 7.9 4.4-10.8 10^3/uL Red Blood Count 5.86 H 4.0-5.20 10^6/uL Hemoglobin 16.7 H 12.2-16.2 g/dL Hematocrit 51.4 H 36.0-46.0 % Mean Corpuscular Volume 87.7 80.0-100.0 fL Mean Corpuscular Hemoglobin 28.6 28.0-32.0 pg Mean Corpuscular Hemoglobin Concent 32.6 32.0-36.0 g/dL Red Cell Distribution Width 17.3 H 11.8-14.3 % Platelet Count 203 140-450 10^3/uL Mean Platelet Volume 8.6 6.9-10.8 fL Neutrophils (%) (Auto) 70.0 37.0-80.0 % Lymphocytes (%) (Auto) 12.7 10.0-50.0 % Monocytes (%) (Auto) 13.6 H 0.0-12.0 % Eosinophils (%) (Auto) 3.1 0.0-7.0 % Basophils (%) (Auto) 0.6 0.0-2.0 % Neutrophils # (Auto) 5.5 1.6-8.6 10 ^3/uL Lymphocytes # (Auto) 1.0 0.4-5.4 10 ^3/uL Monocytes # (Auto) 1.1 0-1.3 10 ^3/uL Eosinophils # (Auto) 0.2 0-0.8 10 ^3/uL Basophils # (Auto) 0 0-0.2 10 ^3/uL Nucleated Red Blood Cells 0.1 % Sodium Level 135 L 136-145 mmol/L Potassium Level 4.0 3.5-5.1 mmol/L Chloride Level 99 98-107 mmol/L Carbon Dioxide Level 24 20-31 mmol/L Anion Gap 12 5-15 Blood Urea Nitrogen < 5 L 9-23 mg/dL Creatinine 0.69 0.550-1.02 mg/dL Glomerular Filtration Rate Calc 97 >90 mL/min BUN/Creatinine Ratio 7.2 L 10.0-20.0 Serum Glucose 106 74-106 mg/dL Calcium Level 9.7 8.7-10.4 mg/dL Troponin I High Sensitivity 3 L </=34 ng/L Patient alert. Vitals stable. Complaining of shortness a breath. Placed on oxygen. Cardiac marker within normal limits. WBC within normal limits. Hemoglobin elevated. She has been having fevers. Possible pneumonitis. Possible pneumonia. Establish intravenous access. Was given Rocephin. Was given Levaquin. Explained to the patient. Continue monitoring. Time of 1ST Reevaluation: 16:20 Reevaluation 1ST: Unchanged Patient Education/Counseling: Diagnosis, Treatment, Prognosis Family Education/Counseling: Diagnosis, Treatment, Prognosis SEPSIS Sepsis Screen Date sepsis recognized/suspect: Aug 27, 2025 Time Sepsis recognized/suspect: 1533 Recent Procedure: No On Antibiotic Therapy: No Respiratory Rate >20: No Heart Rate >90: No Temp<36 C (96.8 F) or >38.3 C: Yes (100.7) SBP <90 or MAP <65 mmHG: No New Acute Mental Status Change: No Is the patient on CPAP, BIPAP,: No Physician Orders Covid19 Antigen Marcella (08/27/25 ) Rapid Influenza A&B (08/27/25 15:38) Chest Portable (08/27/25 15:59) Urinalysis (08/27/25 15:59) Troponin-I Hs (08/27/25 16:59) Troponin-I Hs (08/27/25 18:59) Vital Signs Date Time Temp Pulse Resp B/P (MAP) Pulse Ox O2 Delivery O2 Flow Rate FiO2 08/27/25 15:33 100.7 96 20 143/103 88 100.7 Laboratory Tests Test 08/27/25 16:19 White Blood Count 7.9 10^3/uL (4.4-10.8) Departure 1 Departure Time of Disposition: 17:12 Impression: Primary Impression: Acute respiratory failure Qualified Codes: J96.01 - Acute respiratory failure with hypoxia Additional Impression: Pneumonitis Disposition: ADMITTED INPATIENT Admit to: Med Surg Condition: Guarded Critical Care Note Critical Care Time?: Yes (90 min-critical care time only) Stability Stability form required: No Heart Score Heart Score: Heart Score Response (Comments) Value History Slightly Suspicious 0 EKG Normal 0 Age 45-64 1 Risk Factors >3 or Hx ASHD 2 Troponin Normal limit 0 Total 3 I personally scribed for JOSE G SCHAEFFER MD ([email or web address]) on 08/27/25 at 16:00. Electronically submitted by Sophia Adame ([email or web address]). JOSE G SCHAEFFER MD Aug 27, 2025 16:00
--- NOTE | 2025-08-27 16:29 | DVH ---
CHEST RADIOGRAPH INDICATION: sob TECHNIQUE: Single frontal view of the chest was obtained COMPARISON: CT CHEST WO on DOS: 06/28/24, CHEST PORTABLE on DOS: 09/14/20 FINDINGS: Lines and Tubes: None Lungs: Clear Pleura: No effusion. No pneumothorax. Cardiomediastinal contours: Moderate cardiomegaly , stable. large hiatal hernia. Bones: Unremarkable IMPRESSION: 1. Moderate cardiomegaly.
[2025-08-27 16:34] LABS: Hematocrit 51.4 % (36.0-46.0); Hemoglobin 16.7 g/dL (12.2-16.2); Mean Corpuscular Hemoglobin 28.6 pg (28.0-32.0); Mean Corpuscular Volume 87.7 fL (80.0-100.0); Nucleated Red Blood Cells % 0.1 %
[2025-08-27 16:38] LABS: Chloride 99 mmol/L (98-107); Potassium 4.0 mmol/L (3.5-5.1)
[2025-08-27 16:39] LABS: Anion Gap 12 (5-15); Calcium 9.7 mg/dL (8.7-10.4); Carbon Dioxide 24 mmol/L (20-31); Sodium 135 mmol/L (136-145)
[2025-08-27 16:44] LABS: Glucose 106 mg/dL (74-106)
[2025-08-27 16:48] LABS: BUN/Creatinine Ratio 7.2 (10.0-20.0); Blood Urea Nitrogen < 5 mg/dL (9-23)
[2025-08-27 22:31] VITALS: BP 141/84; TEMP 100
[2025-08-27] MEDS: ACETAMINOPHEN 325 MG TAB PO ONE (22:33)
[2025-08-27 23:47] LABS: COVID19 ANTIGEN SOFIA FIA NEGATIVE (NEGATIVE)
[2025-08-28] MEDS ORDERED: AZIT500T66 PO (01:41)
[2025-08-28] MEDS ORDERED: ALBU108A5 IN (01:41)
[2025-08-28 02:08] VITALS: PULSE 89; RESP 18; O2SAT 94
== END 2025-08-28 02:18 | disposition home or self-care (01) ==
LOC: ER 15:29
DX: J96.00 Acute respiratory failure, unspecified whether with hypoxia or hypercapnia (principal); K21.9 Gastro-esophageal reflux disease without esophagitis; J18.9 Pneumonia, unspecified organism; I10 Essential (primary) hypertension; Z20.822 Contact with and (suspected) exposure to COVID-19
CPT/HCPCS: 36415; 71045; 80048; 84484; 85025; 87426; 87804; 99291; 99292